=== PATIENT | male | born 1960 | race Hispanic/Latino ===

== ENCOUNTER → 2017-11-03 | Outpatient (CLI) | payer BC | END | disposition home or self-care (01) | LOC: SLP 20:20 | PROVIDERS: ATTEND Internal Medicine | DX: G47.33 Obstructive sleep apnea (adult) (pediatric) (principal) | CPT/HCPCS: 95810 ==

== ENCOUNTER → 2017-11-19 | Outpatient (CLI) | payer BC | END | disposition home or self-care (01) | LOC: SLP 19:55 → EDUNIT# 01-12 20:30 | PROVIDERS: ATTEND Internal Medicine | DX: G47.33 Obstructive sleep apnea (adult) (pediatric) (principal) | CPT/HCPCS: 95811 ==